=== PATIENT | female | born 1985 | race African-American/Black ===

== ENCOUNTER 2016-06-01 21:57 | Emergency (ER) | payer OTHER ==
[2016-06-01 22:26] VITALS: BP 122/69; PULSE 88; TEMP 98.8; BMI 22.3
--- NOTE | 2016-06-01 22:46 | PDOC ---
History of Present Illness - General Chief Complaint: Cold Symptoms Stated Complaint: COLD SYMPTOMS Time Seen by Provider: 06/01/16 22:33 History Source: Patient Exam Limitations: No Limitations - History of Present Illness Initial Comments: 06/01/16 22:38 Patient here with complaints of cough, fevers 101, chills, ear and throat pain, generalized body aches. States son was ill with same last week and told was a viral infection. 06/01/16 22:46 Timing/Duration: reports: changing over time, getting worse Severity: reports: mild, moderate Associated Symptoms: reports: chest pain/soreness, cough, fever/chills, muscle aches Past History - Travel Traveled outside of the country in the last 30 days: No Close contact w/someone who was outside of country & ill: No - Past Medical History Allergies/Adverse Reactions: Allergies Allergy/AdvReac Type Severity Reaction Status Date / Time No Known Allergies Allergy Verified 06/01/16 22:18 Home Medications: Ambulatory Orders Vit #108/Iron/FA [ One Tablet] 1 tab PO AM 10/12/13 Oseltamivir Phosphate [Tamiflu -] 75 mg PO BID #10 capsule 06/01/16 Asthma: Yes - Reproductive History (#): 4 Para: 0 Ectopic : Yes (2002) Therapeutic (s) & number: Yes (2) Tubal Ligation: No Spontaneous : 1 - Immunization History Immunization Up to Date: Yes - Psycho/Social/Smoking Cessation Hx Anxiety: No Suicidal Ideation: No Smoking History: Never smoked Have you smoked in the past 12 months: No Information on smoking cessation initiated: No Hx Alcohol Use: No Drug/Substance Use Hx: No Review of Systems - Review of Systems Able to Perform ROS?: Yes Is the patient limited Nepali proficient: Yes Constitutional: Yes: Symptoms Reported, See HPI, Chills, Fever, Loss of Appetite , Malaise, Weakness HEENTM: Yes: Symptoms Reported, See HPI, Nose Congestion, Throat Pain Respiratory: Yes: Symptoms reported, See HPI, Cough (non productive) ABD/GI: Yes: Symptoms Reported, See HPI, Poor Appetite Musculoskeletal: Yes: Symptoms Reported, See HPI, Muscle Weakness Neurological: Yes: Symptoms reported *Physical Exam - Vital Signs Last Vital Signs Temp Pulse Resp BP Pulse Ox 98.8 F 88 20 122/69 99 06/01/16 22:18 06/01/16 22:18 06/01/16 22:18 06/01/16 22:18 06/01/16 22:18 - Physical Exam General Appearance: Yes: Nourished, Appropriately Dressed, Apparent Distress, Mild Distress HEENT: positive: ARACELIS, TMs Normal ( congested but landmarks easily visualized), Pharyngeal Erythema, Tonsillar Erythema, Nasal Congestion, Rhinorrhea. negative : Normal ENT Inspection, Pharynx Normal Neck: positive: Tender, Supple (no swelling or exudate), Lymphadenopathy (R), Lymphadenopathy (L) Respiratory/Chest: positive: Lungs Clear, Normal Breath Sounds (but coarse) Gastrointestinal/Abdominal: positive: Normal Bowel Sounds, Soft. 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 Will treat with Tamiflu *DC/Admit/Observation/Transfer Diagnosis at time of Disposition: Upper respiratory infection, viral - Discharge Dispostion Disposition: HOME Condition at time of disposition: Stable Admit: No - Prescriptions Prescriptions: Oseltamivir Phosphate [Tamiflu -] 75 mg PO BID #10 capsule - Patient Instructions Printed Discharge Instructions: DI for Viral Upper Respiratory Infection -- Adult Additional Instructions: Rest, drink lots of fluids: Teas, water, soups, Pedialyte Saltwater gargles Steamy showers/seem to face break up mucus Old-fashioned treatments help! Avoid contact with others until fevers and cough resolved as this is very contagious Lots of handwashing and good hygiene Continue [id number] medications for symptomatic relief Tylenol or Motrin for fever and pain Take all of Tamiflu as directed: 1 tab every 12 hours for 5 days Followup with private physician in one to 2 days as needed or if worsening Return to emergency department for worsened symptoms, fevers, dehydration Influenza takes between 5 and 7 days for resolution To not participate in any activity, work, or school until fevers and cough are gone for at least one day - Post Discharge Activity Work/School Note: Back to Work
== END 2016-06-01 22:54 | disposition home or self-care (01) ==
LOC: JER 21:57
DX: J06.9 Acute upper respiratory infection, unspecified (principal); B97.89 Other viral agents as the cause of diseases classified elsewhere
CPT/HCPCS: 99281-25

== ENCOUNTER 2018-05-17 11:38 | Emergency (ER) | payer OTHER ==
--- NOTE | 2018-05-17 11:48 | PDOC ---
History of Present Illness - General Chief Complaint: Respiratory Stated Complaint: SORE THROAT, DIARRHEA Time Seen by Provider: 05/17/18 11:42 History Source: Patient Exam Limitations: No Limitations - History of Present Illness Initial Comments: 05/17/18 11:47 Pt is a 32yo F with PMH of Asthma presenting to ED with complaints of diarrhea. Pt states diarrhea started last night and noticed her family having similar symptoms. She endorses congestion, sore throat and L earache. Diarrhea is liquid , and states she has gone multiple times. No blood or tarry stools. She endorses chills and slight epigastric discomfort. Denies nausea, vomiting, fevers, cough, chest pain, SOB, urinary symptoms. She took Nyquil last night but it did not help much. PMD: Artie PMH: see hpi PSH: Meds: none Allergies: nkda Social: Denies Past History - Past Medical History Allergies/Adverse Reactions: Allergies Allergy/AdvReac Type Severity Reaction Status Date / Time No Known Allergies Allergy Verified 05/17/18 11:51 Home Medications: Ambulatory Orders Medroxyprogesterone Acetate [Depo-Provera] 150 mg IM ASDIR 05/17/18 Asthma: Yes - Reproductive History (#): 4 Para: 0 Ectopic : Yes (2002) Therapeutic (s) & number: Yes (2) Tubal Ligation: No Spontaneous : 1 - Immunization History Immunization Up to Date: Yes - Suicide/Smoking/Psychosocial Hx Smoking History: Never smoked Have you smoked in the past 12 months: No Hx Alcohol Use: No Drug/Substance Use Hx: No Review of Systems - Review of Systems Constitutional: Yes: Chills, Malaise. No: Fever HEENTM: Yes: Nose Congestion, Throat Pain Respiratory: No: Cough, Shortness of Breath, Wheezing Cardiac (ROS): No: Chest Pain, Lightheadedness, Palpitations, Syncope, Chest Tightness ABD/GI: Yes: See HPI, Diarrhea, Abdominal cramping. No: Constipated, Nausea, Rectal Bleeding, Vomiting, Tarry Stools : No: Burning, Dysuria, Hematuria Musculoskeletal: Yes: Symptoms Reported, See HPI Integumentary: No: Symptoms Reported Neurological: No: Headache, Numbness, Tingling *Physical Exam - Physical Exam General Appearance: Yes: Nourished, Appropriately Dressed. No: Apparent Distress HEENT: positive: EOMI, ARACELIS, TMs Normal, Pharynx Normal. negative: Scleral Icterus (R), Scleral Icterus (L), Pharyngeal Erythema, Tonsillar Exudate Neck: positive: Trachea midline, Supple. negative: Lymphadenopathy (R), Lymphadenopathy (L) Respiratory/Chest: positive: Lungs Clear, Normal Breath Sounds. negative: Crackles, Rales, Rhonchi, Stridor, Wheezing Cardiovascular: positive: Regular Rhythm, Regular Rate, S1, S2. negative: Edema , JVD, Murmur Vascular Pulses: Carotid (R): 2+, Carotid (L): 2+, Dorsalis-Pedis (R): 2+, Doralis-Pedis (L): 2+ Gastrointestinal/Abdominal: positive: Normal Bowel Sounds, Soft, Tenderness ( epigastric). 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 Pt states diarrhea started last night and noticed her family having similar symptoms. She endorses congestion, sore throat and L earache. Diarrhea is liquid , and states she has gone multiple times. No blood or tarry stools. She endorses chills and slight epigastric discomfort. Denies nausea, vomiting, fevers, cough, chest pain, SOB, urinary symptoms. She took Nyquil last night but it did not help much. Did not get the flu shot this year. Vitals: slight tachycardia (102) PE: slight epigastric tenderness. Normal ENT. Ddx includes but not limited to flu, viral illness, pancreatitis, gastritis, cholecystitis, colitis, pna, electrolyte/metabolic disturbance -high suspicion for viral etiology given timing of family symptoms. Oral rehydration, flu and strep swab. zantac, maalox. Pt is tolerating PO. Reports feeling better. Repeat vitals wnl. Will dc home. *DC/Admit/Observation/Transfer Diagnosis at time of Disposition: Viral illness - Discharge Dispostion Disposition: HOME Condition at time of disposition: Improved Decision to Admit order: No - Referrals Referrals: Cristiano Alva MD [Primary Care Provider] - - Patient Instructions Printed Discharge Instructions: Diarrhea Additional Instructions: You were seen in the emergency room for diarrhea and congestion. Your symptoms are most likely due to a viral illness. I highly recommend that you stay hydrated. Keep drinking fluids, soups. Please try to make an appointment with your PMD in the next week. You can take Tylenol or ibuprofen for aches/chills as needed. Come back to the emergency room if you develop fever, worsening diarrhea, vomiting, difficulty breathing, chest pain or if any new concerning symptom develops. Thank you - Post Discharge Activity
[2018-05-17 11:59] VITALS: BP 104/70; TEMP 99; BMI 28.7
[2018-05-17] MEDS ORDERED: MAG HYDROX/AL HYDROX/SIMETH 30 ML UNIT-DOSE CUP PO ONE (12:20)
[2018-05-17] MEDS ORDERED: RANITIDINE HCL 150 MG TABLET (FP) PO ONE (12:20)
[2018-05-17] MEDS ORDERED: RANITIDINE HCL 150 MG TABLET (FP) ONE (12:35)
[2018-05-17] MEDS ORDERED: MAG HYDROX/AL HYDROX/SIMETH 30 ML UNIT-DOSE CUP ONE (12:35)
--- NOTE | 2018-05-17 12:48 | PDOC ---
Attending Attestation - Resident Resident Name: Sa Naomiira - ED Attending Attestation I have performed the following: I have examined & evaluated the patient, The case was reviewed & discussed with the resident, I agree w/resident's findings & plan - HPI HPI: 05/17/18 12:48 32 YOF h/o asthma with cough and nasal congestion x 1 day, a/w chills and diarrhea. Multiple episodes of watery nonbloody diarrhea today. +abdominal pain , in the epigastrium. +left ear pain and sore throat. No fever, vomiting, urinary sx +sick contacts including son and partner. - Physicial Exam PE: 05/17/18 12:47 NAD, well appearing, EOMI, PERRL, airway intact, normal phonation. MMM, nl conjunctiva, anicteric; bilateral T.M clear. neck supple, nontender. lungs clear , RRR, abdomen soft mild epigastric TTP, no rebound or guarding. DIAMOND x4, no focal neuro deficits. No peripheral edema. normal color for ethnicity, WWP. - Medical Decision Making 05/17/18 13:40 hpi as documented VS wnl, no fever, mild tachy. examination benign, well appearing tolerating PO intake, no s/s dehydration strep and flu neg likely early viral illness vs gastroenteritis vs viral syndrome c/w supportive care and hydration, respiratory precautions reviewed, OTC analgesia PRN Pt to be discharged in stable condition. Patient made aware of impression and plan, return precautions discussed (including but not limited to worsening pain or symptoms), fevers, or signs of infection, chest pain, respiratory distress, inability to tolerate oral intake, dehydration, syncope, or neurologic changes) . Follow up with PMD as recommended, follow up information provided, take medications as instructed for duration of time. continue with supportive care, avoid triggers and precipitants. Patient does not suffer from an acute life- threatening medical condition at this time she is safe for outpatient follow- up. 05/17/18 14:04
[2018-05-17] MEDS ORDERED: ACETAMINOPHEN 500 MG TABLET (FP) PO ONE (13:42)
[2018-05-17] MEDS ORDERED: ACETAMINOPHEN 500 MG TABLET (FP) ONE (13:48)
[2018-05-17 13:54] VITALS: PULSE 89
== END 2018-05-17 13:53 | disposition home or self-care (01) ==
LOC: FER 11:38
DX: B34.9 Viral infection, unspecified (principal); J45.909 Unspecified asthma, uncomplicated
CPT/HCPCS: 87070; 87804; 87880; 99284-25

== ENCOUNTER 2023-03-06 09:13 | Emergency (ER) | payer OTHER ==
[2023-03-06 09:57] VITALS: BP 132/92; PULSE 89; RESP 18; TEMP 98; BMI 31.8
[2023-03-06] MEDS ORDERED: SODIUM CHLORIDE 0.9% 500 ML INFUS.BAG IV ONE (10:00)
[2023-03-06 10:34] LABS: HEMATOCRIT 41.9 % (32.4-45.2); HEMOGLOBIN 13.9 G/dL (10.7-15.3); MCH 29.2 pg (25.7-33.7); MCHC 33.1 g/dl (32.0-36.0); MEAN CELL VOLUME 88.4 fl (80-96); MEAN PLT VOLUME 8.9 fl (7.5-11.1); PLATELET COUNT 237.4 10^3/uL (134-434); RBC 4.74 10^6/uL (3.60-5.2); WHITE BLOOD COUNT 6.8 10^3/uL (4.0-10.8)
[2023-03-06 10:37] LABS: PLATELET ESTIMATE ADEQUATE
[2023-03-06 10:41] LABS: ALBUMIN 4.5 g/dl (3.4-5.0); BILIRUBIN,TOTAL 0.4 mg/dl (0.2-1); CALCIUM 9.5 mg/dl (8.5-10.1); CREATININE 0.8 mg/dl (0.6-1.3); POTASSIUM 4.5 mmol/L (3.5-5.1); TOT PROT 7.5 g/dl (6.4-8.2)
[2023-03-06] MEDS ORDERED: AMOX TR/POT CLAV 875MG/125MG TABLETS (FP) PO ONE (11:26)
[2023-03-06] MEDS ORDERED: AMOX TR/POT CLAV 875MG/125MG TABLETS (FP) ONE (11:42)
== END 2023-03-06 11:55 | disposition home or self-care (01) ==
LOC: FER 09:13
DX: K52.9 Noninfective gastroenteritis and colitis, unspecified (principal); K62.5 Hemorrhage of anus and rectum; R10.9 Unspecified abdominal pain
CPT/HCPCS: 36415; 74177-TC; 80053; 81003; 81015; 82272; 84703; 85027; 99285-25; Q9967

== ENCOUNTER 2023-05-16 08:14 | Day surgery (SDC) | payer OTHER ==
[2023-05-11 13:39] VITALS: BMI 30.4
[2023-05-16 09:25] VITALS: RESP 18
[2023-05-16 09:26] VITALS: TEMP 97
[2023-05-16 09:27] VITALS: BP 105/74; PULSE 82
== END 2023-05-16 10:20 | disposition home or self-care (01) ==
LOC: FASU-ENDO 08:14
PROVIDERS: ATTEND Internal Medicine Gastroenterology
PROC: 0DBN8ZX Excision of Sigmoid Colon, Via Natural or Artificial Opening Endoscopic, Diagnostic (ICD-10-PCS; 2023-05-16)
PROC: 0DBP8ZX Excision of Rectum, Via Natural or Artificial Opening Endoscopic, Diagnostic (ICD-10-PCS; principal; 2023-05-16 08:44)
DX: R93.3 Abnormal findings on diagnostic imaging of other parts of digestive tract (principal); K63.89 Other specified diseases of intestine
CPT/HCPCS: 81025